=== PATIENT | male | born 1980 | race Caucasian/White ===

== ENCOUNTER 2016-10-12 21:08 | Emergency (ER) | payer OTHER ==
[2016-10-12 21:18] VITALS: BP 143/86; PULSE 67; TEMP 98.1; BMI 27.8
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
== END 2016-10-12 22:44 | disposition home or self-care (01) ==
LOC: JERFT 21:08
DX: S39.012A Strain of muscle, fascia and tendon of lower back, initial encounter (principal); V53.6XXA Passenger in pick-up truck or van injured in collision with car, pick-up truck or van in traffic accident, initial encounter; Y92.414 Local residential or business street as the place of occurrence of the external cause; Y93.89 Activity, other specified
CPT/HCPCS: 99281-25

== ENCOUNTER 2017-05-01 23:27 | Emergency (ER) | payer OTHER ==
[2017-05-01 23:38] VITALS: BP 148/89; PULSE 101; TEMP 98.8; BMI 28.5
--- NOTE | 2017-05-02 | PDOC ---
History of Present Illness <MeraRachael - Last Filed: 05/02/17 01:03> - General History Source: Patient Exam Limitations: No Limitations - History of Present Illness Initial Comments: 05/02/17 01:11 Patient is a 37 year old male with no pmhx of who presents to the ED with complaint of LUQ for few days. Patient states that he has been experiencing LUQ pain that radiates to the left flank, intermittent, that has improved with with passing a bowel movement today. Patient states that the pain is better today. He denies any fever or chills. Denies nausea, vomiting, diarrhea or constipation. He denies any hematuria, dysuria, urgency or hesitancy. <Elizabeth Mary - Last Filed: 05/02/17 01:12> - General Chief Complaint: Pain Stated Complaint: FEVER Time Seen by Provider: 05/01/17 23:59 Past History - Past Medical History Suicide Attempt (Hx): No - Immunization History Immunization Up to Date: Yes - Psycho/Social/Smoking Cessation Hx Anxiety: No Suicidal Ideation: No Smoking History: Never smoked Have you smoked in the past 12 months: No Number of Cigarettes Smoked Daily: 4 Cigars Per Day: 0 Information on smoking cessation initiated: No 'Breaking Loose' booklet given: 05/01/14 Hx Alcohol Use: No Drug/Substance Use Hx: No Substance Use Type: None <Rachael Tesfaye - Last Filed: 05/02/17 01:03> <Elizabeth Mary - Last Filed: 05/02/17 01:12> - Past Medical History Allergies/Adverse Reactions: Allergies Allergy/AdvReac Type Severity Reaction Status Date / Time No Known Allergies Allergy Verified 10/12/16 21:15 Home Medications: Ambulatory Orders NK [No Known Home Medication] 10/12/16 Review of Systems - Review of Systems Able to Perform ROS?: Yes Comments:: 05/02/17 01:11 GENERAL/CONSTITUTIONAL: No fever or chills. No weakness. HEAD, EYES, EARS, NOSE AND THROAT: No change in vision. No ear pain or discharge. No sore throat. CARDIOVASCULAR: No chest pain or shortness of breath. RESPIRATORY: No cough, wheezing, or hemoptysis. GASTROINTESTINAL: +abdominal pain, flank pain. No nausea, vomiting, diarrhea or constipation. GENITOURINARY: No dysuria, frequency, or change in urination. MUSCULOSKELETAL: No joint or muscle swelling or pain. No neck or back pain. SKIN: No rash NEUROLOGIC: No headache, vertigo, loss of consciousness, or change in strength/ sensation. ENDOCRINE: No increased thirst. No abnormal weight change. HEMATOLOGIC/LYMPHATIC: No anemia, easy bleeding, or history of blood clots. ALLERGIC/IMMUNOLOGIC: No hives or skin allergy. <Elizabeth Mary - Last Filed: 05/02/17 01:12> *Physical Exam - Vital Signs Last Vital Signs Temp Pulse Resp BP Pulse Ox 98.8 F 101 H 18 148/89 96 05/01/17 23:36 05/01/17 23:36 05/01/17 23:36 05/01/17 23:36 05/01/17 23:36 <Rachael Tesfaye - Last Filed: 05/02/17 01:03> - Vital Signs Last Vital Signs Temp Pulse Resp BP Pulse Ox 98.8 F 101 H 18 148/89 96 05/01/17 23:36 05/01/17 23:36 05/01/17 23:36 05/01/17 23:36 05/01/17 23:36 - Physical Exam Comments: 05/02/17 01:11 GENERAL: Awake, alert, and fully oriented, in no acute distress HEAD: No signs of trauma EYES: PERRLA, EOMI, sclera anicteric, conjunctiva clear ENT: Auricles normal inspection, hearing grossly normal, nares patent, oropharynx clear without exudates. Moist mucosa NECK: Normal ROM, supple, no lymphadenopathy, JVD, or masses LUNGS: Breath sounds equal, clear to auscultation bilaterally. No wheezes, and no crackles HEART: Regular rate and rhythm, normal S1 and S2, no murmurs, rubs or gallops ABDOMEN: Soft, nontender, normoactive bowel sounds. No guarding, no rebound. No masses EXTREMITIES: Normal range of motion, no edema. No clubbing or cyanosis. No cords, erythema, or tenderness NEUROLOGICAL: Cranial nerves II through XII grossly intact. Normal speech, normal gait SKIN: Warm, Dry, normal turgor, no rashes or lesions noted. <Elizabeth Mary - Last Filed: 05/02/17 01:12> Medical Decision Making - Medical Decision Making 05/02/17 01:04 Pt presents to the ED complaining of L sided flank pain that has no completely resolved after having a bowel movement. Denies fever, nausea or vomiting. Denies dysuria. Patient is no longer tachycardic. Abdomen is non tender and non distended without CVA tenderness. pain may have been secondary to small renal stone or muscular pain. Will discharge home with instructions to return to the ED for worsening pain. <Rachael Tesfaye - Last Filed: 05/02/17 01:03> - Medical Decision Making 05/02/17 00:29 Made multiple attempts to examine the patient who was not in the room. 05/02/17 00:49 Two other attempts were made to examine the patient, the patient is not in the bed. <Elizabeth Mary - Last Filed: 05/02/17 01:12> *DC/Admit/Observation/Transfer - Discharge Dispostion Admit: No Decision to Admit order Date/Time: 05/02/17 01:10 return to the ED for severe pain, pain with nausea and vomiting, pain with fever. 05/02/17 01:10 <Rachael Tesfaye - Last Filed: 05/02/17 01:03> - Attestations Scribe Attestion: 05/02/17 01:11 Documentation prepared by GULSHAN Aldana, acting as medical office clerk for Rachael Tesfaye MD. <Elizabeth Mary - Last Filed: 05/02/17 01:12> Diagnosis at time of Disposition: Abdominal pain Qualifiers: Abdominal location: left upper quadrant Qualified Code(s): R10.12 - Left upper quadrant pain - Discharge Dispostion Disposition: HOME - Referrals Referrals: Yovana Mccauley MD [Primary Care Provider] - - Patient Instructions Printed Discharge Instructions: DI for Abdominal Pain-Adult Additional Instructions: return to the ED for severe pain, pain with nausea and vomiting, pain with fever.
== END 2017-05-02 01:24 | disposition home or self-care (01) ==
LOC: JER 23:27
DX: R10.12 Left upper quadrant pain (principal)
CPT/HCPCS: 99281-25

== ENCOUNTER 2018-04-30 06:10 | Emergency (ER) | payer OTHER | END 2018-04-30 06:37 | disposition left against medical advice (07) | LOC: JER 06:10 | DX: Z53.21 Procedure and treatment not carried out due to patient leaving prior to being seen by health care provider (principal) | CPT/HCPCS: 99281-25 ==

== ENCOUNTER 2018-05-01 11:19 | Emergency (ER) | payer OTHER ==
[2018-05-01 11:59] VITALS: BP 119/80; PULSE 89; TEMP 98; BMI 28.8
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
[2018-05-01] MEDS ORDERED: DIPHTH,PERTUSS(ACELL),TET 0.5 ML DISP.SYRIN IM ONE (12:52)
== END 2018-05-01 13:36 | disposition home or self-care (01) ==
LOC: JERFT 11:19
PROC: 3E0234Z Introduction of Serum, Toxoid and Vaccine into Muscle, Percutaneous Approach (ICD-10-PCS; principal; 2018-05-01)
DX: S81.859A Open bite, unspecified lower leg, initial encounter (principal); W54.0XXA Bitten by dog, initial encounter; Y93.89 Activity, other specified; Y92.89 Other specified places as the place of occurrence of the external cause
CPT/HCPCS: 90715; 99281-25

== ENCOUNTER 2019-09-29 03:45 | Emergency (ER) | payer OTHER ==
[2019-09-29 04:00] VITALS: BP 132/88; PULSE 77; TEMP 97.3; BMI 30.7
--- NOTE | 2019-09-29 04:14 | PDOC ---
History of Present Illness - General Chief Complaint: Substance Abuse Stated Complaint: OPIOD ADDICTION Time Seen by Provider: 09/29/19 04:01 - History of Present Illness Initial Comments: 09/29/19 04:10 Mr. Aparicio is a 39 yo male w/ pmh of prescription drug abuse (reports daily percocet use for past 6 years) who presents for evaluation requesting detox. Patient reports last use was earlier today. Denies any acute complaints however suspects he will withdraw soon. The patient denies chest pain, shortness of breath, headache and dizziness. Denies fever, chills, nausea, vomit, diarrhea and constipation. Denies dysuria, frequency, urgency and hematuria. Past History - Past Medical History Allergies/Adverse Reactions: Allergies Allergy/AdvReac Type Severity Reaction Status Date / Time No Known Allergies Allergy Verified 09/29/19 04:01 Home Medications: Ambulatory Orders NK [No Known Home Medication] 05/01/18 COPD: No - Immunization History Immunization Up to Date: Yes - Psycho Social/Smoking Cessation Hx Smoking History: Unknown if ever smoked Have you smoked in the past 12 months: No Number of Cigarettes Smoked Daily: 4 Cigars Per Day: 0 'Breaking Loose' booklet given: 05/01/14 Hx Alcohol Use: No Drug/Substance Use Hx: No Substance Use Type: None Review of Systems - Review of Systems Comments:: 09/29/19 04:14 GENERAL/CONSTITUTIONAL: No fever or chills. No weakness. HEAD, EYES, EARS, NOSE AND THROAT: No change in vision. No ear pain or discharge. No sore throat. CARDIOVASCULAR: No chest pain or shortness of breath RESPIRATORY: No cough, wheezing, or hemoptysis. GASTROINTESTINAL: No nausea, vomiting, diarrhea or constipation. GENITOURINARY: No dysuria, frequency, or change in urination. MUSCULOSKELETAL: No joint or muscle swelling or pain. No neck or back pain. SKIN: No rash NEUROLOGIC: No headache, vertigo, loss of consciousness, or change in strength/ sensation. ENDOCRINE: No increased thirst. No abnormal weight change HEMATOLOGIC/LYMPHATIC: No anemia, easy bleeding, or history of blood clots. ALLERGIC/IMMUNOLOGIC: No hives or skin allergy. *Physical Exam - Vital Signs Last Vital Signs Temp Pulse Resp BP Pulse Ox 97.3 F L 77 18 132/88 100 09/29/19 03:59 09/29/19 03:59 09/29/19 03:59 09/29/19 03:59 09/29/19 03:59 - Physical Exam 09/29/19 04:15 GENERAL: Awake, alert, and fully oriented, in no acute distress HEAD: No signs of trauma, normocephalic, atraumatic EYES: PERRLA, EOMI, sclera anicteric, conjunctiva clear ENT: Auricles normal inspection, hearing grossly normal, nares patent, oropharynx clear without exudates. Moist mucosa NECK: Normal ROM, supple, no lymphadenopathy, JVD, or masses LUNGS: No distress, speaks full sentences, clear to auscultation bilaterally HEART: Regular rate and rhythm, normal S1 and S2, no murmurs, rubs or gallops, peripheral pulses normal and equal bilaterally. ABDOMEN: Soft, nontender, normoactive bowel sounds. No guarding, no rebound. No masses EXTREMITIES: Normal inspection, Normal range of motion, no edema. No clubbing or cyanosis. NEUROLOGICAL: Cranial nerves II through XII grossly intact. Normal speech, normal gait, no focal sensorimotor deficits SKIN: Warm, Dry, normal turgor, no rashes or lesions noted. Medical Decision Making - Medical Decision Making 09/29/19 05:28 Mr. Aparicio is a 39 yo male w/ pmh as described who presents for evaluation of opioid abuse. Patient alert and oriented and will go to detox facility for further care. Loperamide given for symptomatic relief of non-specific GI upset reported on repeat exam. Discharging with plan to proceed to detox facility. Discharge - Discharge Information Problems reviewed: Yes Clinical Impression/Diagnosis: Opioid abuse Disposition: HOME - Follow up/Referral Referrals: Yovana Mccauley MD [Primary Care Provider] - - Patient Discharge Instructions Patient Printed Discharge Instructions: DI for Opioid Addiction Additional Instructions: You were evaluated today in the ER. We contacted [facility] and you will proceed directly there for detox as discussed. Return to ER if any fever, chills, pain, or other concerning symptoms. - Post Discharge Activity
[2019-09-29] MEDS ORDERED: LOPERAMIDE HCL 1 MG/5 ML UNIT DOSE CUP PO ONE (04:31)
[2019-09-29] MEDS ORDERED: LOPERAMIDE HCL 2 MG CAPSULE ONE (04:33)
--- NOTE | 2019-09-29 04:33 | PDOC ---
Attending Attestation - Resident Resident Name: Mark Spearsorn - ED Attending Attestation I have performed the following: I have examined & evaluated the patient, The case was reviewed & discussed with the resident, I agree w/resident's findings & plan - HPI HPI: 09/29/19 04:37 Pt abuses percocet. He wants to turn around his life and comes for detox. - Physicial Exam PE: 09/29/19 04:47 Agree with resident exam - Medical Decision Making 09/29/19 04:48 Pt will have no labs. I spoke to [facility]. They tell me that there are no male beds, and that pt needs to be sent there in the AM.
== END 2019-09-29 06:50 | disposition home or self-care (01) ==
LOC: JER 03:45
DX: F11.10 Opioid abuse, uncomplicated (principal)
CPT/HCPCS: 99282-25

== ENCOUNTER 2021-11-30 05:01 | Emergency (ER) | payer OTHER ==
[2021-11-30 05:18] VITALS: BMI 28.5
[2021-11-30] MEDS ORDERED: ACETAMINOPHEN 1000 MG/100 ML BAG IVPB ONE (06:00)
[2021-11-30] MEDS ORDERED: LACTATED RINGERS SOLUTION 1000 ML INFUS.BAG IV ONE ×2 (06:00→06:02)
[2021-11-30] MEDS ORDERED: ONDANSETRON 4 MG/2 ML VIAL IVPUSH ONE ×2 (06:00→10:10)
[2021-11-30] MEDS ORDERED: FAMOTIDINE 20 MG/50 ML IVPB 20 MG/50 ML MG IVPB ONE (06:01)
[2021-11-30] MEDS ORDERED: MAG HYDROX/AL HYDROX/SIMETH 30 ML UNIT-DOSE CUP PO ONE (06:01)
[2021-11-30] MEDS ORDERED: MAG HYDROX/AL HYDROX/SIMETH 30 ML UNIT-DOSE CUP ONE (06:17)
[2021-11-30] MEDS ORDERED: ACETAMINOPHEN INJECTION 100 ML IVPB ONE (06:17)
[2021-11-30] MEDS ORDERED: ONDANSETRON 4 MG/2 ML VIAL ONE ×2 (06:17→10:25)
[2021-11-30] MEDS ORDERED: FAMOTIDINE 10 MG/ML VIAL IVPB ONE (06:17)
[2021-11-30 07:35] LABS: CALCIUM 8.4 mg/dL (8.5-10.1)
[2021-11-30 07:36] LABS: ALBUMIN 4.2 g/dl (3.4-5.0); BLOOD UREA NITROGEN 19.2 mg/dL (7-18); MAGNESIUM 1.9 mg/dL (1.8-2.4)
[2021-11-30 07:39] LABS: CREATININE 1.1 mg/dL (0.55-1.3)
[2021-11-30 07:40] LABS: BILIRUBIN,TOTAL 0.6 mg/dL (0.2-1)
[2021-11-30 07:50] LABS: BASO % 0.2 % (0-2.0); EOS % 0.8 % (0-4.5); HEMATOCRIT 47.5 % (35.4-49); HEMOGLOBIN 16.3 GM/dL (11.7-16.9); LYMPH % 4.8 % (8-40); MCH 30.8 pg (25.7-33.7); MCHC 34.3 g/dl (32.0-35.9); MEAN CELL VOLUME 89.5 fl (80-96); MONO % 7.6 % (3.8-10.2); NEUT % 86.6 % (42.8-82.8); PLATELET COUNT 190 10^3/uL (134-434); RDW 12.7 % (11.9-15.9); WHITE BLOOD COUNT 6.5 K/mm3 (4.0-10.0)
[2021-11-30 10:30] VITALS: PULSE 102
[2021-11-30 10:42] VITALS: BP 107/64; TEMP 98.6
== END 2021-11-30 11:00 | disposition home or self-care (01) ==
LOC: JER 05:01
PROC: 3E033GC Introduction of Other Therapeutic Substance into Peripheral Vein, Percutaneous Approach (ICD-10-PCS; principal; 2021-11-30)
DX: R11.10 Vomiting, unspecified (principal); R19.7 Diarrhea, unspecified
CPT/HCPCS: 36415; 71046-TC-FY; 80053; 83690; 83735; 85025; 93005; 93010; 99285-25

== ENCOUNTER 2022-10-15 16:26 | Emergency (ER) | payer OTHER ==
[2022-10-15 16:32] VITALS: BP 134/85; PULSE 88; RESP 18; TEMP 98.5; BMI 29.2
[2022-10-15] MEDS ORDERED: ACETAMINOPHEN 500 MG TABLET (FP) PO ONE (17:39)
[2022-10-15] MEDS ORDERED: ACETAMINOPHEN 325 MG TABLET (FP) ONE (18:22)
== END 2022-10-15 17:45 | disposition left against medical advice (07) ==
LOC: JER 16:26 → JERFT 16:26
DX: R05.1 Acute cough (principal); R43.0 Anosmia
CPT/HCPCS: 0241U-QW; 71046-TC-FY; 99284-25

== ENCOUNTER 2023-10-09 22:37 | Emergency (ER) | payer OTHER ==
[2023-10-09 22:43] VITALS: BP 120/75; PULSE 88; RESP 20; TEMP 98.4; BMI 30.7
[2023-10-10 00:56] LABS: PH,URINE 5.5 (5.0-8.0); URINE APPEARANCE CLEAR; URINE BILIRUBIN NEGATIVE (NEGATIVE); URINE COLOR YELLOW; URINE GLUCOSE (UA) NEGATIVE (NEGATIVE); URINE KETONE NEGATIVE (NEGATIVE); URINE LEUK ESTERASE NEGATIVE (NEGATIVE); URINE NITRITE NEGATIVE (NEGATIVE); URINE PROTEIN TRACE (NEGATIVE); URINE UROBILINOGEN 0.2 mg/dL (0.2-1.0)
[2023-10-10 00:59] LABS: BASO % 0.9 % (0-2.0); EOS % 3.9 % (0-4.5); HEMATOCRIT 38.2 % (35.4-49); HEMOGLOBIN 13.3 GM/dL (11.7-16.9); LYMPH % 37.8 % (8-40); MCH 31.7 pg (25.7-33.7); MCHC 34.8 g/dl (32.0-35.9); MEAN PLT VOLUME 8.9 fl (7.5-11.1); MONO % 10.9 % (3.8-10.2); NEUT % 46.5 % (42.8-82.8); PLATELET COUNT 160 10^3/uL (134-434); RDW 13.3 % (11.9-15.9); WHITE BLOOD COUNT 5.8 K/mm3 (4.0-10.0)
[2023-10-10 01:08] LABS: POTASSIUM 4.4 mmol/L (3.5-5.1)
[2023-10-10 01:10] LABS: ALBUMIN 3.7 g/dl (3.4-5.0); CALCIUM 8.4 mg/dL (8.5-10.1)
[2023-10-10 01:11] LABS: MAGNESIUM 1.9 mg/dL (1.8-2.4)
[2023-10-10 01:12] LABS: INR 0.97 (0.83-1.09); PROTHROMBIN TIME (PATIENT) 11.3 SEC (9.7-13.0)
[2023-10-10 01:14] LABS: CREATININE 0.9 mg/dL (0.55-1.3)
[2023-10-10 01:15] LABS: ACTIVATED PTT 32.1 SECONDS (25.2-36.5); BILIRUBIN,TOTAL 0.3 mg/dL (0.2-1); TOT PROT 7.3 g/dl (6.4-8.2)
[2023-10-10 01:19] LABS: N-TERMINAL BNP 21.6 pg/ml (5-125)
== END 2023-10-10 01:30 | disposition left against medical advice (07) ==
LOC: JER 22:37
DX: R06.02 Shortness of breath (principal); R60.0 Localized edema; F32.A Depression, unspecified; I51.81 Takotsubo syndrome; E66.01 Morbid (severe) obesity due to excess calories; Z20.822 Contact with and (suspected) exposure to COVID-19
CPT/HCPCS: 0241U-QW; 36415; 71046-TC-FY; 80053; 81003; 83735; 83880; 84484; 85025; 85610; 85730; 87086; 93005; 93010; 99285-25

== ENCOUNTER 2023-10-10 14:50 | Emergency (ER) | payer OTHER ==
[2023-10-10 15:28] VITALS: BP 125/84; PULSE 98; RESP 20; TEMP 98.6; BMI 30.7
== END 2023-10-10 19:13 | disposition left against medical advice (07) ==
LOC: JER 14:50
DX: R06.02 Shortness of breath (principal); R60.0 Localized edema
CPT/HCPCS: 99281-25

== ENCOUNTER 2023-10-20 14:32 | Emergency (ER) | payer OTHER ==
[2023-10-20 14:42] VITALS: BP 126/79; PULSE 86; RESP 22; TEMP 97.5; BMI 30.7
== END 2023-10-20 20:37 | disposition home or self-care (01) ==
LOC: JER 14:32
DX: R06.02 Shortness of breath (principal); M79.671 Pain in right foot; M79.672 Pain in left foot; R60.0 Localized edema
CPT/HCPCS: 71046-TC-FY; 93970-TC; 99285-25